=== PATIENT | female | born 1950 | race Caucasian/White ===

== ENCOUNTER 2025-01-24 19:04 | Emergency (ER) | payer OTHER ==
[~2025-01-24] VITALS: Ht 160 cm; Wt 67.7 kg
[2025-01-24 19:16] VITALS: BP 161/86; TEMP 98.7
--- NOTE | 2025-01-24 19:23 | ED.PDOC ---
Musculoskeletal HPI Comments 74 year old female presents to the ED with a chief complaint of RT forearm pain onset today (01/24/25). Patient states she did light house work this morning, was sitting on the couch, took a nap, when she woke up and tried to use RT arm she noticed pain. A few hours after she noticed RT forearm was swollen, pain, was not able to move or use forearm due to pain. PMHx arthritis. Denies fall, injury, headache, dizziness, nausea, vomiting, fever, chills. No other symptoms or modifying factors present at this time. Time Seen by MD: 19:10 Reviewed Notes: Medications, Allergies Allergies: Coded Allergies: NO KNOWN ALLERGIES (Unverified , 01/24/25) Information Source: Patient, Relative Mode of Arrival: Ambulatory Location: Right Extremity Location: Forearm Timing: Hours Prehospital treatment: None Severity: Moderate Pain: Moderate Mechanism: Spontaneous Circumstances: Spontaneous Onset of Symptoms: Spontaneous Symptoms: Swelling, Pain DVT Risk Factors: NONE History of: Arthritis Associated signs and symptoms: Forearm pain, Swelling Past Medical History PAST MEDICAL HISTORY: Arthritis Surgical History: Denies all surgeries SCHEDULE ANNOUNCER History: No Pertinent SCHEDULE ANNOUNCER History Family History Family History: Reviewed,noncontributory to illness, No family hx of Cancer, No family hx of DM, No family hx of Heart quintin, No family hx of HTN, No family hx ofKidney quintin, No family hx of Liver quintin, No family hx of Lung quintin, No family hx of Stroke Social History Smoker: Non-Smoker Alcohol: Denies ETOH Use Drugs: Denies Drug Use Lives In: Home Constitutional: denies: chills, diaphoresis, fatigue, fever, malaise, sweats, weakness, others Respiratory: denies: cough, hemoptysis, orthopnea, SOB at rest, shortness of breath, SOB with excertion, stridor, wheezing, others Cardiovascular: denies: chest pain, dizzy spells, diaphoresis, Dyspnea on exert ion, edema, irregular heart beat, left arm pain, lightheadedness, palpitations, PND, syncope, others Gastrointestinal: denies: abdomen distended, abdominal pain, blood streaked bowels, constipated, diarrhea, dysphagia, difficulty swallowing, hematemesis, melena, nausea, poor appetite, poor fluid intake, rectal bleeding, rectal pain, vomiting, others Genitourinary: denies: abnormal vagina bleeding, burning, dyspareunia, dysuria, flank pain, frequency, hematuria, incontinence, pain, , vagina discharge, urgency, others Neurological: denies: dizziness, fainting, headache, left sided numbness, left sided weakness, numbness, paresthesia, pre-existing deficit, right sided numbness, right sided weakness, seizure, speech problems, tingling, tremors, weakness, others Musculoskeletal: reports: others (RT forearm pain, swelling ); denies: back pain, gout, joint pain, joint swelling, muscle pain, muscle stiffness, neck pain Integumetry: denies: bruises, change in color, change in hair/nails, dryness, laceration, lesions, lumps, rash, wounds, others Allergic/Immunocompromised: denies: Difficulty Healing, Frequent Infections, Hives, Itching, others Hematologic/Lymphatic: denies: anemia, blood clots, easy bleeding, easy b ruising, swollen glands, others Endocrine: denies: excessive hunger, excessive sweating, excessive thirst, excessive urination, flushing, intolerance to cold, intolerance to heat, unexplained weight gain, unexplained weight loss, others Psychiatric: denies: anxiety, bipolar disorder, depression, hopeless, panic disorder, schizophrenia, sleepless, suicidal, others All Other Systems: Reviewed and Negative Physical Exam General Appearance: No Apparent Distress, Normal HEENT: Normal ENT Inspection, Pharynx Normal, TMs Normal Neck: Full Range of Motion, Non-Tender, Normal, Normal Inspection Respiratory: Chest Non-Tender, Lungs Clear, No Accessory Muscle Use, No Respiratory Distress, Normal Breath Sounds Cardiovascular: No Edema, No JVD, No Murmur, No Gallop, Normal Peripheral Pulses, Regular Rate/Rhythm Breast Exam: Deferred Gastrointestinal: No Organomegaly, Non Tender, No Pulsatile Mass, Normal Bowel Sounds, Soft Genitalia: Deferred Pelvic: Deferred Rectal: Deferred Extremities: No calf tenderness, Normal capillary refill, Normal inspection, Normal range of motion, Non-tender, No pedal edema Musculoskeletal : Apperance: Normal Neurologic: Alert, beader II-XII nml as Tested, No Motor Deficits, Normal Affect, Normal Mood, No Sensory Deficits Cerebellar Function: Normal Reflexes: Normal Skin: Dry, Normal Color, Warm Lymphatic: No Adenopathy Was a procedure done? Was a procedure done?: No Differential Diagnosis EXT Differential Diagnosis: Fracture, Sprain, Dislocation, Rheumatoid X-Ray, Labs, Meds, VS Vital Signs Date Time Temp Pulse Resp B/P (MAP) Pulse Ox O2 Delivery O2 Flow Rate FiO2 01/24/25 21:34 76 16 100 Room Air* 0 21 01/24/25 19:16 98.7 76 16 161/86 (111) 100 98.7 Current Medications Medications (Trade) Dose Ordered Sig/Jens Route Start Time Stop Time Status Last Admin Ondansetron HCl (Zofran Po) 4 mg ONCE ONCE PO 01/24/25 19:30 01/24/25 19:31 DC 01/24/25 21:29 Acetaminophen/ Hydrocodone Bitart ([place] 10/325MG Tab) 1 tab ONCE ONCE PO 01/24/25 19:30 01/24/25 19:31 DC 01/24/25 21:[address] [address] Ph: [phone] DIAGNOSTIC IMAGING Diagnostic Imaging Report : [id number] Signed PATIENT: MACKENZIE TROY ACCT: [id number] UNIT: [id number] : 1950 LOC: ER ROOM / BED: / AGE / SEX: 74 / F ADM STATUS: REG ER SERVICE 15 ORDERING PHYSICIAN: ARNULFO NY MD PROCEDURE(s): RELB - R ELBOW 2V XRAY REASON: right elbow pain ORDER NUMBER(s): [id number], ACCESSION NUMBER(s): [id number] CLINICAL INFORMATION: 74 years old, Female; right elbow pain. TECHNIQUE: 3 views of the right elbow were obtained. COMPARISON: None FINDINGS: There may be a small osteophyte or fractured osteophyte of the coronoid process of the olecranon no acute fractures appreciated fat pads are normal. IMPRESSION: 1. 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 But no evidence for fracture ATED BY: FINN DENNEY MD DICTATED DATE/TIME: 01/24/252004 SIGNED BY: FINN DENNEY MD SIGNED DATE/TIME: 01/24/252004 CC: [place] [id number] Ph: [phone] DIAGNOSTIC IMAGING Diagnostic Imaging Report : [id number] Signed PATIENT: MACKENZIE TROY ACCT: [id number] UNIT: [id number] : 1950 LOC: ER ROOM / BED: / AGE / SEX: 74 / F ADM STATUS: REG ER SERVICE 15 ORDERING PHYSICIAN: ARNULFO NY MD PROCEDURE(s): RFOR - R FOREARM XRAY REASON: right arm pain ORDER NUMBER(s): [id number], ACCESSION NUMBER(s): [id number] CLINICAL INDICATION: right arm pain TECHNIQUE: XY R FOREARM XRAY Comparison: None FINDINGS: IMPRESSION: No osseous or joint abnormality identified with no fracture or dislocation. ATED BY: DANE HALE MD DICTATED DATE/TIME: 01/24/252002 SIGNED BY: DANE HALE MD SIGNED DATE/TIME: 01/24/252002 CC: [place] [id number] Ph: [phone] DIAGNOSTIC IMAGING Diagnostic Imaging Report : [id number] Signed PATIENT: MACKENZIE TROY ACCT: [id number] UNIT: [id number] : 1950 LOC: ER ROOM / BED: / AGE / SEX: 74 / F ADM STATUS: REG ER SERVICE 15 ORDERING PHYSICIAN: ARNULFO NY MD PROCEDURE(s): RWRI - R WRIST 3+ VIEW XRAY REASON: right wrist pain ORDER NUMBER(s): [id number], ACCESSION NUMBER(s): [id number] CLINICAL INDICATION: right wrist pain TECHNIQUE: 3 radiographic views of the right wrist were obtained. Comparison: None FINDINGS/IMPRESSION: There is no evidence of acute fracture or dislocation. There is fusion of the 1st metacarpal and proximal phalanx of the 1st digit with bony exostosis of the expected head of the 1st metacarpal The alignment is anatomical. There is no radiopaque foreign body. ATED BY: GIOVANNA ROPER DO DICTATED DATE/TIME: 01/24/252002 SIGNED BY: GIOVANNA ROPER DO SIGNED DATE/TIME: 01/24/252002 CC: Time of 1ST Reevaluation: 19:40 Reevaluation 1ST: Unchanged Patient Education/Counseling: Diagnosis, Treatment, Prognosis Family Education/Counseling: Diagnosis, Treatment, Prognosis Additional Information The following tests were ordered, and results were reviewed by me: XY R FOREARM, XY R ELBOW 2 VIEW, R WRIST 3+ VIEW XRAY Additional Information was gathered from interviewing the following independent historians: daughter in law I reviewed and agreed with the following test results read by other providers: XY R FOREARM, XY R ELBOW 2 VIEW, R WRIST 3+ VIEW XRAY I discussed treatment and results with medical personnel and: Patient, daughter in law Departure 1 Departure Time of Disposition: 21:52 (Patient likely has a muscle sprain or tendon inju ry. We will discharge patient home with outpatient orthopedic follow up) Impression: Primary Impression: Right forearm pain Disposition: 01 HOME / SELF CARE / HOMELESS Condition: Stable Referrals: HA COSTA MD Additional Instructions: Your x-rays were benign. You may have a muscle or tendon injury. You were referred to orthopedics. Please call for an appointment this week. For pain you can take the followinam: Ibuprofen 400mg with food Noon: Acetaminophen 1000mg 4pm: Ibuprofen 400mg with food 8pm: Acetaminophen 1000mg You should follow up with your regular doctor within one week to ensure you are doing better. If your symptoms worsen or you have any other concerns then please return to the ER. Discharged With: Self Critical Care Note Critical Care Time?: No Stability Stability form required: No I personally scribed for ARNULFO NY MD ([email or web address]) on 01/24/25 at 19:23. Electronically submitted by Olivia Du ([email or web address]). I personally scribed for ARNULFO NY MD ([email or web address]) on 01/24/25 at 20:27. Electronically submitted by Olivia Du ([email or web address]). ARNULFO NY MD Jan 24, 2025 19:23
--- NOTE | 2025-01-24 20:06 | DVH ---
CLINICAL INDICATION: right wrist pain TECHNIQUE: 3 radiographic views of the right wrist were obtained. Comparison: None FINDINGS/IMPRESSION: There is no evidence of acute fracture or dislocation. There is fusion of the 1st metacarpal and proximal phalanx of the 1st digit with bony exostosis of th e expected head of the 1st metacarpal The alignment is anatomical. There is no radiopaque foreign body.
--- NOTE | 2025-01-24 20:06 | DVH ---
CLINICAL INDICATION: right arm pain TECHNIQUE: XY R FOREARM XRAY Comparison: None FINDINGS: IMPRESSION: No osseous or joint abnormality identified with no fracture or dislocation.
--- NOTE | 2025-01-24 20:08 | DVH ---
CLINICAL INFORMATION: 74 years old, Female; right elbow pain. TECHNIQUE: 3 views of the right elbow were obtained. COMPARISON: None FINDINGS: There may be a small osteophyte or fractured osteophyte of the coronoid process of the olec ranon no acute fractures appreciated fat pads are normal. IMPRESSION: 1. 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 But no evidence for fracture
[2025-01-24] MEDS: ONDANSETRON ODT 4 MG TAB PO ONE (21:29)
[2025-01-24] MEDS: HYDROcodone-ACET 10/325MG TAB PO ONE (21:29)
[2025-01-24 21:34] VITALS: PULSE 76; RESP 16; O2SAT 100
== END 2025-01-24 22:09 | disposition home or self-care (01) ==
LOC: ER 19:04
DX: M79.631 Pain in right forearm (principal)
CPT/HCPCS: 73070; 73090; 73110; 99284; Q0162